=== PATIENT | female | born 1990 | race Caucasian/White ===

== ENCOUNTER 2017-08-26 15:41 | Day surgery (SDC) | payer OTHER ==
[2017-08-26] MEDS ORDERED: Morphine INJ* 2 MG/ML 1 ML CARPUJECT IV ONE (15:51)
[2017-08-26] MEDS ORDERED: Ondansetron INJ* 2 MG/ML VIAL IV ONE (15:51)
[2017-08-26] MEDS ORDERED: NS 0.9% 1000 ML* 1,000 ML IV ONE (15:51)
[2017-08-26 16:32] LABS: ABS Basophils 0 10^3/ul (0-0.2); ABS Eosinophils 0.1 10^3/ul (0-0.6); ABS Lymphocytes 2.8 10^3/ul (1.0-4.8); ABS Monocytes 0.5 10^3/ul (0-0.8); ABS Neutrophils 3.6 10^3/ul (1.5-7.7); ABS Nucleated RBC 0 10^3/ul; Eosinophil % 1.2 % (0-6); Hematocrit 40 % (35-47); Hemoglobin 13.8 g/dl (12.0-16.0); Mean Corpuscular HGB Conc 34 g/dl (31-36); Mean Corpuscular Hemoglobin 29 pg (27-31); Mean Corpuscular Volume 84 fL (80-97); Mean Platelet Volume 7 um3 (7.4-10.4); Nucleated Red Blood Cells % 0; Platelet Count 311 10^3/ul (150-450); Red Blood Count 4.78 10^6/ul (4.0-5.4); Red Cell Distribution Width 14 % (10.5-15)
[2017-08-26 16:43] LABS: EGFR Non-African American 131.6 (>60)
[2017-08-26 17:22] VITALS: BP 129/83
[2017-08-26 17:27] LABS: Urine Appearance Clear; Urine Blood Negative (Negative); Urine Color Yellow; Urine Ketones Trace (Negative); Urine Protein Negative (Negative); Urine Urobilinogen Negative (Negative)
[2017-08-26] MEDS ORDERED: Bupivacaine 0.25% SDV* 30 ML ONE (17:56)
[2017-08-26] MEDS ORDERED: ceFOXitin 2 GM IVPREMIX* 2 GM/50 ML BAG ONE (18:08)
[2017-08-26] MEDS ORDERED: Sodium Citrate/Citric Acid* 15 ML UDC ONE (18:19)
[2017-08-26] MEDS ORDERED: Sodium Citrate/Citric Acid* 15 ML UDC PO ONE (18:20)
[2017-08-26] MEDS ORDERED: HYDROcodone/ACETAMIN 5-325 MG* 1 TAB PO PRN (18:21)
[2017-08-26] MEDS ORDERED: DiMENhydriNATE IV* 50 MG/ML VIAL IV PUSH PRN (18:21)
[2017-08-26] MEDS ORDERED: oxyCODONE/Acetamin 5/325 MG* TAB PO PRN (18:21)
[2017-08-26] MEDS ORDERED: fentaNYL* 50 MCG/ML 2 ML VIAL (100 MCG VIAL) IV PRN (18:21)
[2017-08-26] MEDS ORDERED: Naloxone* 0.4 MG/ML 1 ML VIAL IV PRN (18:21)
--- NOTE | 2017-08-26 19:40 | BRIEFOPN ---
Brief Operative Note - Surgery Procedures: OPERATIVE REPORT PRE-OP: Acute appendicitis POST-OP: Same PROCEDURE: Laparoscopic appendectomy SURGEON: MD Millicent ANESTHESIA: General with Local Dr. Poe ASST: none IVF: min EBL: min SPECIMEN: Appendix DRAIN: none WOUND CLASS: 3 COMPLICATIONS: none TO PACU
--- NOTE | 2017-08-26 21:07 | HP ---
CC: [facility]; Dr. Rosalva Shaw at [facility] HISTORY AND PHYSICAL ADMISSION: DATE OF ADMISSION: 08/26/17 CHIEF COMPLAINT: Right lower quadrant abdominal pain. HISTORY OF PRESENT ILLNESS: Ms. Alona Dotson is a healthy 27-year-old woman who on Saturday evening developed some generalized abdominal bloating. This was not associated with nausea, vomiting or fever. She had no change in her bowel habits. Over the course of yesterday, she developed some generalized abdominal discomfort, it became more localized in the right lower quadrant, progressed in severity. The pain got so bad today that she presented to her primary care provider, Dr. Rosalva Shaw, and she was referred to the hospital for a CAT scan of the abdomen and pelvis. This showed a thickened dilated appendix consistent with early acute appendicitis and no other acute abnormality and she was referred to the emergency room. Laboratory workup included a normal white blood cell count of 7000. Her test was negative. She had an elevated C-reactive protein of 65 and a slight elevation in her liver transaminases of 50 and 86, but otherwise the studies were unremarkable. test was negative. Urinalysis was also unremarkable. After the results of the CT scan were noted, surgical consultation was obtained. PAST MEDICAL HISTORY: Unremarkable. PAST SURGICAL HISTORY: [place] tooth removal. MEDICATIONS: None. ALLERGIES: She has no known drug allergies. SOCIAL HISTORY: Socially, she is engaged. 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 She does not use tobacco, drinks alcohol on a social basis. REVIEW OF SYSTEMS: Cerebrovascular: No dizziness or visual disturbances. Cardiovascular: No chest pain, shortness of breath. Pulmonary: No wheezing or hemoptysis. GI: As per above. : Menstrual periods are regular. Has had no vaginal bleeding. PHYSICAL EXAMINATION GENERAL: A well-developed slightly overweight female with normal attention to grooming. VITAL SIGNS: Temperature 98.7, pulse 82, blood pressure 133/85. LUNGS: Clear to auscultation with normal respiratory effort. HEART: Regular rate and rhythm without murmurs, rubs or gallops. ABDOMEN: Soft, slightly distended. She has diminished bowel sounds throughout. There are no prior surgical excisions or hernia. She has tenderness in the right lower quadrant with some voluntary guarding, but no rigidity. I appreciate no masses. PSYCHIATRIC: She is awake, alert, and oriented x3. She has normal judgment and insight. DIAGNOSTIC STUDIES: I did review the images of the CT scan, as well as the official radiology report. IMPRESSION: Acute appendicitis both by clinical history, physical exam as well as the CT scan results. She does have a normal white blood cell count, but has an elevated C-reactive protein. CAT scan was otherwise unremarkable. PLAN: I recommend laparoscopic appendectomy today. We discussed the procedure with her and her fiance here in the holding area. The risks of, but not limited to, of bleeding, infection, intraabdominal abscess formation, injury to peritoneal and retroperitoneal structures, possibility of an open procedure, abdominal abscess, the risks of general anesthesia, deep vein thrombosis and blood clots in the lungs were all explained. We also briefly discussed hospital stays and recovery times as well. After our thorough discussion, she agrees and gives consent to proceed with a laparoscopic appendectomy. [id number]/CPS #: [id number] MTDD
--- NOTE | 2017-08-27 15:46 | OP ---
CC: Dr. Rosalva Shaw, [facility] * DATE OF OPERATION: 08/26/17 - [facility] DATE OF : 88 SURGEON: Caleb Ricks MD. MANDARIN CHINESE TEACHER: None. ANESTHESIOLOGIST: Dr. Poe. ANESTHESIA: General with local. PRE-OP DIAGNOSIS: Acute appendicitis. POST-OP DIAGNOSIS: Acute appendicitis. OPERATIVE PROCEDURE: Laparoscopic appendectomy. ESTIMATED BLOOD LOSS: Minimal. IV FLUIDS: 1 L crystalloid. SPECIMENS: Appendix. DRAINS: None. WOUND CLASSIFICATION: 3. FINDINGS: The appendix was thick walled, indurated and hyperemic. There was no evidence of gangrene or fibrinous exudate. The terminal ileum, cecum and right ovary and uterus appeared to be unremarkable. There are no other acute findings noted on laparoscopy. BRIEF HISTORY: Ms. Alona Dotson is a 27-year-old woman who presented to the emergency room with 36 hours of right lower quadrant abdominal pain and a CT scan that showed findings consistent with early acute appendicitis. She is now to be taken to the operating room for a appendectomy. DESCRIPTION OF PROCEDURE: Written informed consent was obtained, the abdomen was marked with indelible ink, and preoperative antibiotics were administered. The patient was taken to the operating room, placed in a supine position. Sequential compression devices and a warming blanket were applied. General anesthesia was administered. The abdomen was prepped and draped in the usual sterile fashion. Time-out verification was completed. Initially, 0.25% Marcaine mixed with 1% lidocaine was infiltrated in the umbilicus and a vertical incision was made just below the umbilical fold at the midline. The peritoneal cavity was entered under direct vision. A 12-mm blunt port was inserted and the abdomen was insufflated to 15 mmHg. Under direct vision, a 5-mm port was placed in the left lower abdominal wall and a second 5-mm port was placed in the suprapubic position. Upon evaluating the abdomen, there was no evidence of purulence or generalized peritonitis. The patient was placed in Trendelenburg position. The omentum was brought up from the pelvis up into her abdomen to expose the underlying intestine. The terminal ileum, cecum appeared to be unremarkable. The appendix was easily identified. It was intraperitoneal. The entire appendix was thickened, firm, rigid, distended, and hyperinjected without evidence of gangrene or fibrinous exudate, however. Findings were consistent with early acute appendicitis. The right ovary was easily visualized as well as uterus and these structures were unremarkable. There were no other abnormalities noted. The mesoappendix was then divided sequentially with the LigaSure device down to the base of the appendix. The cecum was unremarkable and this was then divided and amputated with an Endo TIM gonzales load of 45-mm stapler. The appendix was placed in an Endo Catch bag and brought up through the umbilical incision. The staple line was intact without bleeding. The mesentery without bleeding. The area was irrigated. Hemostasis was assured. All ports removed under direct vision of the camera and there was no abdominal wall bleeding. The umbilical fascia was closed with interrupted 0 Polysorb suture. The skin at all three incisions was approximated with a subcuticular 4-0 Polysorb suture. Steri-Strips and sterile dressings were applied. The patient tolerated the procedure well and was taken to the recovery room in stable condition. [id number]/CPS #: [id number] OSWALD
--- NOTE | 2017-08-28 08:40 | ED ---
Claudio Stoddard Angela, scribed for Denzel Mooney MD on 08/26/17 at 1554 . Abdominal Pain/Female - HPI Summary HPI Summary: This pt is a 27 y/o female presenting to [facility] brought by CT imaging for a diagnosis of acute appendicitis. Pt reports she began to feel bloated 2 days ago. Yesterday, she states she had worsening abdominal pain, which she rated 10/ 10 in severity. Currently pt rates her pain 4/10 in severity. She additionally notes nausea, vomiting, and fever. She denies any PMHx. - History of Current Complaint Chief Complaint: EDAbdPain Stated Complaint: POSSIBLE APPENDICITIS Hx Obtained From: Patient Onset/Duration: Lasting Days, Still Present Timing: Days Severity Currently: Moderate Pain Intensity: 4 Pain Scale Used: 0-10 Numeric Location: Discrete At: RLQ Radiates: No Aggravating Factor(s): Nothing Alleviating Factor(s): Nothing Associated Signs and Symptoms: Positive: Fever, Nausea, Vomiting Allergies/Adverse Reactions: Allergies Allergy/AdvReac Type Severity Reaction Status Date / Time No Known Allergies Allergy Verified 08/26/17 15:46 Home Medications: Home Medications NK [No Home Medications Reported] 08/26/17 [History Confirmed 08/26/17] PMH/Surg Hx/FS Hx/Imm Hx Endocrine/Hematology History: Denies: Hx Diabetes Cardiovascular History: Denies: Hx Hypertension Infectious Disease History: No Infectious Disease History: Denies: Traveled Outside the [place] in Last 30 Days - Family History Known Family History: Positive: Hypertension - Social History Alcohol Use: None Substance Use Type: Reports: None Smoking Status (MU): Never Smoked Tobacco Review of Systems Positive: Fever Positive: Abdominal Pain, Vomiting, Nausea All Other Systems Reviewed And Are Negative: Yes Physical Exam - Summary Physical Exam Summary: VITAL SIGNS: Reviewed. GENERAL: Patient is a well-developed and nourished female who is lying comfortable in the stretcher. Patient is not in any acute respiratory distress. HEAD AND FACE: Normocephalic and atraumatic. EYES: PERRLA, EOMI x 2, No injected conjunctiva. EARS: Hearing grossly intact. Ear canals and tympanic membranes are WNL. MOUTH: Oropharynx within normal limits. NECK: Supple, trachea is midline, no adenopathy, no JVD. CHEST: Symmetric, no tenderness at palpation LUNGS: Clear to auscultation bilaterally. No wheezing or crackles. CVS: RRR, S1 and S2 present, no murmurs or gallops appreciated. ABDOMEN: Soft. Right lower quadrant tenderness. No signs of distention. Positive bowel sounds. No rebound no guarding, and no masses palpated. No abdominal bruit or pulsations. EXTREMITIES: FROM in all major joints, no edema, no cyanosis or clubbing. NEURO: Alert and oriented x 3. No acute neurological deficits. Speech is normal. SKIN: Dry and warm Triage Information Reviewed: Yes Vital Signs On Initial Exam: Initial Vitals Temp Pulse Resp BP Pulse Ox 98.7 F 82 16 133/85 97 08/26/17 15:43 08/26/17 15:43 08/26/17 15:43 08/26/17 15:43 08/26/17 15:43 Vital Signs Reviewed: Yes Diagnostics - Vital Signs Vital Signs Temp Pulse Resp BP Pulse Ox 08/26/17 15:43 98.7 F 82 16 133/85 97 - Laboratory Result Diagrams: 08/26/17 16:05 08/26/17 16:05 Lab Statement: Any lab studies that have been ordered have been reviewed, and results considered in the medical decision making process. - CT Abdomen/Pelvis CT CT Interpretation: Positive (See Comments) - IMPRESSION: 1. Dilated appendix suggestive of early acute appendicitis without loculated fluid collection to suggest abscess. 2. Fatty infiltration of liver. Dr. Mooney has reviewed this radiology report. CT Interpretation Completed By: Radiologist Abdominal Pain Fem Course/Dx - Course Course Of Treatment: This pt is a 27 y/o female presenting to [facility] brought by CT imaging for a diagnosis of acute appendicitis. Pt reports she began to feel bloated 2 days ago. Yesterday, she states she had worsening abdominal pain, which she rated 10/10 in severity. Currently pt rates her pain 4/10 in severity. She additionally notes nausea, vomiting, and fever. She denies any PMHx. Test results without any significant abnormalities. Urinalysis is negative. Abdomen/pelvis CT: 1. Dilated appendix suggestive of early acute appendicitis without loculated fluid collection to suggest abscess. 2. Fatty infiltration of liver. Therefore I discussed the case with the physician planning assistant, from Dr. Dominique daniels. After their assessment they accepted the pt for admission for an acute appendicitis. Pt is hemodynamically stable, alert and oriented x3. - Diagnoses Provider Diagnoses: Acute appendicitis - Provider Notifications Discussed Care Of Patient With: PA from Dr. Lester's services Time Discussed With Above Provider: 17:16 Instructed by Provider To: Other - I discussed pt care with PA from Dr. Lester' s services who has agreed to admit the pt. Discharge - Discharge Plan Condition: Stable Disposition: ADMITTED TO [facility] Discharge Disposition Comment: to surgery Referrals: Rosalva Shaw MD [Primary Care Provider] - The documentation as recorded by the Claudio retana Angela accurately reflects the service I personally performed and the decisions made by Vinicio leger Walter, MD.
--- NOTE | 2017-09-04 09:55 | OP ---
CC: Dr. Shaw's office, [facility] * DATE OF OPERATION: 08/26/17 - [facility] DATE OF : 88 SURGEON: Caleb Ricks MD. MEAT SOAKER: None. ANESTHESIOLOGIST: Dr. Poe. ANESTHESIA: General with local. PRE-OP DIAGNOSIS: Acute appendicitis. POST-OP DIAGNOSIS: Acute appendicitis. OPERATIVE PROCEDURE: Laparoscopic appendectomy. ESTIMATED BLOOD LOSS: Minimal. IV FLUIDS: 1 L crystalloid. SPECIMENS: Appendix. DRAINS: None. WOUND CLASSIFICATION: 3. FINDINGS: The appendix was thick walled, indurated and hyperinjected. There was no evidence of gangrene or fibrinous exudate. The terminal ileum, cecum and right ovary and uterus appeared to be unremarkable. There were no other acute findings noted on laparoscopy. BRIEF HISTORY: Ms. Alona Dotson is a 27-year-old woman who presented to the emergency room with 36 hours of right lower quadrant abdominal pain and a CT scan that showed findings consistent with early acute appendicitis. She is now to be taken to the operating room for a appendectomy. DESCRIPTION OF PROCEDURE: Written informed consent was obtained, the abdomen was marked with indelible ink, and preoperative antibiotics were administered. The patient was taken to the operating room, placed in a supine position. Sequential compression devices and a warming blanket were applied. General anesthesia was administered. The abdomen was prepped and draped in the usual sterile fashion. Time-out verification was completed. Initially, 0.25% Marcaine mixed with 1% lidocaine was infiltrated in the umbilicus and a vertical incision was made just below the umbilical fold at the midline. The peritoneal cavity was entered under direct vision. A 12-mm blunt port was inserted and the abdomen was insufflated to 15 mmHg. Under direct vision, a 5-mm port was placed in the left lower abdominal wall and a second 5-mm port was placed in the suprapubic position. Upon evaluating the abdomen, there was no evidence of purulence or generalized peritonitis. The patient was placed in Trendelenburg position. The omentum was brought up from the pelvis up into her abdomen to expose the underlying intestine. The terminal ileum, cecum appeared to be unremarkable. The appendix was easily identified. It was intraperitoneal. The entire appendix was thickened, firm, distended, and hyperinjected without evidence of gangrene or fibrinous exudate, however. Findings were consistent with early acute appendicitis. The right ovary was usually visualized as well as uterus and this was unremarkable. There were no other abnormalities noted. The mesoappendix was then divided sequentially with the LigaSure device down to the base of the appendix. The cecum was unremarkable and this was then divided and amputated with an Endo TIM gonzales load of 45-mm stapler. The appendix was placed in an Endo Catch bag and brought up through the umbilical incision. The staple line was intact without bleeding. The mesentery without bleeding. The area was irrigated. Hemostasis was assured. All ports removed under direct vision of the camera and there was no abdominal wall bleeding. The umbilical fascia was closed with interrupted 0 Polysorb suture. The skin at all three incisions was approximated with a subcuticular 4-0 Polysorb suture. Steri-Strips and sterile dressings were applied. The patient tolerated the procedure well and was taken to the recovery room in stable condition. [id number] #: [id number] OSWALD
== END 2017-08-26 21:00 | disposition home or self-care (01) ==
LOC: ED 15:41 → OR 17:22
PROVIDERS: ATTEND Surgery
DX: K35.80 Unspecified acute appendicitis (principal); R10.31 Right lower quadrant pain; R11.2 Nausea with vomiting, unspecified; K76.0 Fatty (change of) liver, not elsewhere classified; R50.9 Fever, unspecified; R14.0 Abdominal distension (gaseous)
CPT/HCPCS: 36415; 80053; 81003; 83605; 83690; 84702; 85025; 86140; 87040; 88304; 96361; 96374; 96375; 99283; A9270-GY; C1776; J0694; J2270; J2405

== ENCOUNTER 2018-01-29 20:34 | Emergency (ER) | payer OTHER ==
--- OUTSIDE RECORDS SUMMARY | 2018-01-29 20:40 | XMS REPORT ---
:1990 External Reference #:[id number] Author Organization [facility] Address [address] [place] [address] Phone [phone] Care Team Providers Name Role Phone Rosalva Shaw M.D. 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 018 hours as needed Omeprazole Hx Capsules 40mg 30caps 1 by mouth R19.7 Rosalva Quinn - DR every day , M.D. 018 Control 00/00/0 Hx 1 po qd Unknown Pill 000 - 018 Vital Signs Date Vital Result Comment 01/03/2018 BP Systolic 124 mmHg BP Diastolic 78 mmHg Heart Rate 80 /min Body Temperature 98.5 F Respiratory Rate 15 /min Height 64 inches 5'4" Weight 166.00 lb BMI (Body Mass Index) 28.5 kg/m2 08/26/2017 BP Systolic 128 mmHg BP Diastolic 82 mmHg Heart Rate 92 /min Body Temperature 98.2 F Respiratory Rate 16 /min Height 64 inches 5'4" Weight 170.00 lb BMI (Body Mass Index) 29.2 kg/m2 04/24/2017 BP Systolic 126 mmHg BP Diastolic 82 mmHg Heart Rate 80 /min Body Temperature 99.1 F Respiratory Rate 16 /min Height 64 inches 5'4" Weight 157.00 lb BMI (Body Mass Index) 26.9 kg/m2 Results Test Date Test Result H/L Range Note Urine (a) 01/03/2018 SP Grav 1.020 Urine, (Fma/CMC/CTX) neg Ua - Micro (a) 01/03/2018 Appearance clear Color yellow Glucose, Urine (Fma/CMC/CTX) neg Bilirubin neg Ketones neg SP Grav 1.020 Blood neg PH 6.5 Protein neg Urobil 0.2 Nitrite neg Leukocytes (a/CMC/[facility]rex) neg Hyaline - /Lpf Granular - /Lpf WBC ([facility]) - RBC - Mucus - /Lpf Epith - /Lpf Bacteria - /Hpf Amorphous - /Lpf Crystals, Fluid (Fma/CMC/CTX) - Z#Comments - Urinalysis Profile 08/26/2017 Urine Color Yellow Urine Appearance Clear Urine Specific [place] 1.010 1.010-1.030 Urine pH 6.0 5-9 Urine Urobilinogen Negative Negative Urine Ketones Trace Negative Urine Protein Negative Negative Urine Leukocytes Negative Negative Urine Blood Negative Negative Urine Nitrite Negative Negative Urine Bilirubin Negative Negative Urine Glucose Negative Negative Laboratory test finding 08/26/2017 Blood Culture SEE RESULT BELOW 1 CBC Electronic (a) 08/26/2017 WBC 7.5 3.6-9.6 RBC 4.91 3.90-5.70 Hemoglobin (Fma/CMC/CTX) 13.9 g/dL 12.1 - 17.2 Hematocrit (Fma/CMC/CTX) 42.2 % 36.1 - 50.3 Platelets 332 10^3/ul 150-400 Lymph% 38.8 % 17.0-48.0 Mixed% 5.2 Neutrophils % 56.0 Mean Corpuscular Vol 86 82.2-97.4 Mean Corpuscular Hemoglobin 28.4 27.6-33.3 Mean Corpuscular Hemo Concen 33.0 32.0-36.0 RDW 14.2 High 11.6-13.7 Mean Platelet Volume 6.3 5.5-11.0 Ua - Non Micro (a) 08/26/2017 Appearance yellow Color clear Glucose, Urine (Fma/CMC/CTX) neg Bilirubin neg Ketones neg SP Grav 1.020 Blood neg PH 7.0 Protein neg Urobil 2.0 Nitrite neg Leukocytes ([facility]) neg Urine (Fma) 08/26/2017 SP Grav 1.020 Urine, (a/CMC/CTX) negative Hepatitis B Virus (Profile ) 05/22/2017 HBsAg Screen Negative Negative 2 Hep Be Ag Negative Negative 2 Hep B Core Ab, IgM Negative Negative 2 Hep B Core Ab, Tot Negative Negative 2 Hep Be Ab Negative Negative 2 Hep B Surface Ab, Qual Reactive 2, 3 Laboratory test finding 05/22/2017 HCV AB non-reactive non-reactive Comprehensive Metabolic Prof 05/22/2017 Sodium 142 mEq/L 134-149 Potassium 4.4 mEq/L 3.6-5.5 Chloride 103 mEq/L 94-112 Carbon Dioxide 21 mEq/L 21-32 Glucose 103 mg/dL 70-105 BUN 7 mg/dL 6-26 Creatinine 0.6 mg/dL 0.6-1.4 BUN/Creat Ratio 11.7 CALC 8.0-36.0 Calcium 8.6 mg/dL 8.6-10.2 Total Protein 6.8 g/dL 6.4-8.3 Albumin 4.3 g/dL 3.8-5.5 Globulin 2.5 g/dL 2.0-4.8 A/G Ratio 1.7 CALC 0.6-2.3 Alk. Phosphatase 36 U/L 30-110 Alt (SGPT) 23 U/L 7-35 Ast (Sgot) 23 U/L 5-34 Total Bilirubin 0.3 mg/dL 0.2-1.3 GFR Non- >60 ml/min/1.73m^ >=60 GFR >60 ml/min/1.73m^ >=60 Lipid Profile 05/22/2017 Cholesterol 195 mg/dL 120-200 Triglycerides 137 mg/dL 30-200 HDL Cholesterol 63 mg/dL 30-85 LDL (Calculated) 105 CALC 0-129 VLDL Cholesterol 27 mg/dL 0-50 HDL Risk Factor 3.1 CALC 0.0-4.4 Celiac Disease AB Screen 04/24/2017 Immunoglobulin A, Qn, Serum 160 mg/dL 87-352 2 Deamidated Gliadin Abs, IgA 3 units 0-19 2, 4 t-Transglutaminase (tTG) IgA <2 U/mL 0-3 2, 5 Comprehensive Metabolic Prof 04/24/2017 Sodium 135 mEq/L 134-149 Potassium 4.3 mEq/L 3.6-5.5 Chloride 98 mEq/L 94-112 Carbon Dioxide 26 mEq/L 21-32 Glucose 119 mg/dL High 70-105 BUN 16 mg/dL 6-26 Creatinine 1.0 mg/dL 0.6-1.4 BUN/Creat Ratio 16.0 CALC 8.0-36.0 Calcium 9.3 mg/dL 8.6-10.2 Total Protein 6.8 g/dL 6.4-8.3 Albumin 4.7 g/dL 3.8-5.5 Globulin 2.1 g/dL 2.0-4.8 A/G Ratio 2.2 CALC 0.6-2.3 Alk. Phosphatase 41 U/L 30-110 Alt (SGPT) 65 U/L High 7-35 Ast (Sgot) 38 U/L High 5-34 Total Bilirubin 0.8 mg/dL 0.2-1.3 GFR Non- >60 ml/min/1.73m^ >=60 GFR >60 ml/min/1.73m^ >=60 Complete Blood Count 04/24/2017 WBC 5.1 x10^3/UL 3.6-9.6 RBC 4.65 x10^6/UL 3.90-5.70 HGB 13.1 g/dL 12.1-17.2 HCT 39 % 36-50 MCV 85.0 fL 82.2-97.4 MCH 28.1 pg 27.6-33.3 MCHC 33.1 g/dL 33.0-35.5 RDW 13.8 % High 11.6-13.7 PLT 339 x10^3/UL 150-400 MPV 6.5 fL Low 7.4-10.4 Gran # 2.6 x10^3/UL 1.5-7.2 Lymph# 2.1 x10^3/UL 0.7-4.9 Person# 0.4 x10^3/UL 0.1-0.9 Gran % 49.6 % 42.2-75.2 Lymph % 41.4 % 20.5-51.1 Person% 9.0 % 1.7-9.3 Laboratory test finding 04/24/2017 Free T4 1.21 ng/dL 0.75-1.54 TSH 1.58 mIU/L 0.50-6.00 1 SEE RESULT BELOW Name: ALONA DOTSON : [address]: Caleb Ricks MD Acct: [id number] Unit: [id number] AGE: 27 Location: OR Re08/26/17 SEX: F Status: RENÉE HELTON SPEC: [id number] MAYI: 08/26/17-[address] [facility] [address]: Denzel Mooney MD REQ: [id number] RECD: 08/26/17 STATUS: [facility] DR: Rosalva Shaw MD _ SOURCE: BLOOD,VENO SPDESC: ORDERED: Blood Cult Procedure Result Reported Site Aerobic Culture Bottle Final 08/31/17- 1624 ML No Growth Day 5 Anaerobic Culture Bottle Final 08/31/17- 1622 ML No Growth Day 5 * ML - MAIN LAB ([facility]) . END OF REPORT * ML=Testing performed at Main Lab DEPARTMENT OF PATHOLOGY, [address] [place] [address] Darien Dixon M.D. Director [facility] # [id number] 2 1 sst 3 Non Reactive: Inconsistent with immunity, less than 10 mIU/mL Reactive: Consistent with immunity, greater than 9.9 mIU/mL 4 Negative 0 - 19 Weak Positive 20 - 30 Moderate to Strong Positive >30 5 Negative 0 - 3 Weak Positive 4 - 10 Positive >10 Tissue Transglutaminase (tTG) has been identified as the endomysial antigen. Studies have demonstr- ated that endomysial IgA antibodies have over 99% specificity for gluten sensitive enteropathy. Procedures Description No Information Encounters Type Date Location Provider CPT E/M Dx Office Visit 08/26/2017 11:00a [facility] Office Shakir Bazan, 91900 R10.30 Office Visit 04/24/2017 4:00p [facility] Office Rosalva Shaw M.D. 62383 R19.7 R14.0 Plan of Care 01/03/2018 - Shakir Bazan, MDR10.30 Lower abdominal pain, unspecifiedAllComments:~B_~U_Medication Management~b_~u_ Patient Understands medications she's taking? Yes No Are there Barriers to Adherence? Yes No Has the patient been asked about herbal supplements and therapies, and OTC meds? Yes No
[2018-01-29] MEDS ORDERED: Dexamethasone IV* 4 MG/ML 1 ML (4 MG) IV SLOW PU ONE (21:04)
[2018-01-29] MEDS ORDERED: diPHENhydraMINE IV* 50 MG/ML 1 ml VIAL (BENADRYL) IV ONE (21:06)
[2018-01-29] MEDS ORDERED: Ketorolac INJ* 30 MG/ML 1 ML VIAL IV PUSH ONE (21:06)
[2018-01-29] MEDS ORDERED: cefTRIAXone(*) 1 GM in NS 0.9% 50 ML* 50 ML IVPB ONE (21:06)
--- NOTE | 2018-01-29 21:20 | UC ---
Throat Pain/Nasal Heraclio HPI - HPI Summary HPI Summary: Patient is an otherwise healthy 28-year-old female presenting to the with complaint of sore throat, bilateral neck pain, difficulty opening jaw and feeling of swelling into the bilateral lymph nodes and posterior pharynx. She has never had anything like this before. Denies history of strep throat. Unknown immunizations [place] the [place] she was 10 years old. Denies any fevers, but admits to sweats and chills. Denies any difficulty swallowing, however endorses odynophagia. Denies any difficulty breathing, chest pain or shortness of breath. - History of Current Complaint Chief Complaint: UCGeneralIllness Stated Complaint: THROAT PAIN Time Seen by Provider: 01/29/18 20:46 Hx Obtained From: Patient Hx Last Menstrual Period: 01/07/18 ?: No Onset/Duration: Sudden Onset Severity: Moderate Pain Intensity: 9 Pain Scale Used: 0-10 Numeric Associated Signs & Symptoms: Positive: Other - odynophagia - Epiglottits Risk Factors Epiglottis Risk Factors: Negative - Allergies/Home Medications Allergies/Adverse Reactions: Allergies Allergy/AdvReac Type Severity Reaction Status Date / Time No Known Allergies Allergy Verified 01/29/18 20:48 PMH/Surg Hx/FS Hx/Imm Hx Previously Healthy: Yes - Surgical History Surgical History: Yes Surgery Procedure, Year, and Place: appendectomy - Social History Occupation: Employed Full-time Lives: With Family Alcohol Use: Weekly Substance Use Type: None Smoking Status (MU): Never Smoked Tobacco Review of Systems Constitutional: Negative Skin: Negative ENT: Sore Throat, Other - neck pain Respiratory: Negative Cardiovascular: Negative Motor: Negative Neurovascular: Negative Psychological: Negative Is Patient Immunocompromised?: No All Other Systems Reviewed And Are Negative: Yes Physical Exam Triage Information Reviewed: Yes Appearance: Well-Nourished, Obese Vital Signs: Initial Vital Signs Temp 99.2 F 01/29/18 20:41 Pulse 108 01/29/18 20:41 Resp 22 01/29/18 20:41 BP 147/108 01/29/18 20:41 Pulse Ox 98 01/29/18 20:41 Vital Signs Reviewed: Yes Eye Exam: Normal Eyes: Positive: Conjunctiva Clear ENT: Positive: Uvula midline. Negative: Pharynx normal, Pharyngeal erythema, Nasal congestion, Nasal drainage, Tonsillar swelling, Tonsillar exudate Neck exam: Normal Respiratory Exam: Normal Respiratory: Positive: Chest non-tender, Lungs clear Musculoskeletal Exam: Normal Musculoskeletal: Positive: Strength Intact Neurological Exam: Normal Psychological: Positive: Normal Response To Family Skin Exam: Normal Throat Pain/Nasal Course/Dx - Course Course Of Treatment: During course treatment, the patient is evaluated for difficulty swallowing, bilateral neck pain, enlarged lymph nodes, feeling of trismus and odynophagia. She states 4 days ago started with a sore throat continued with a cough. Denies any shortness of breath or difficulty swallowing. She states she is able to swallow food and drink okay and last meal was 2 hours ago. Allergies include cats, she states she has a cat that this has never affected her such as this. She denies any hives or rash or other skin condition. She has taken ibuprofen intermittently without much relief. CT neck obtained. Benadryl 50mg IV, Rocephin 1g IV, Decadron 10mg IV given. good effect. Patient improves. Also Dr. Mistry to see patient and agrees with course of treatment. She will be given redness own, Robitussin with codeine and is encouraged Benadryl. She is given strict return precautions. - Differential Dx/Diagnosis Provider Diagnoses: Throat tightening Discharge - Sign-Out/Discharge Documenting (check all that apply): Patient Departure - Discharge Plan Condition: Stable Disposition: HOME Prescriptions: Clindamycin Cap(NF) [Clindamycin Cap 300 mg Cap(NF)] 300 mg PO Q6H #20 cap guaiFENesin/CODIEN 100MG-10MG* [Robitussin AC 100Mg-10Mg*] 10 ml PO BEDTIME # 120 udc MDD 40 predniSONE TAB* [Deltasone 20 MG TAB*] 20 mg PO DAILY #12 tab Referrals: Rosalva Shaw MD [Primary Care Provider] - Additional Instructions: Clindamycin four times daily x 5 days Benadryl 25mg up to three times daily - do not drive while taking this medication Prednisone 60mg on day 1 and 2; 40mg on day 3 and 4; 20mg on day 5 and 6 Robitussin with codeine up to every 6 hours as needed for cough Take prednisone in the AM as this is a stimulant and may keep you up at night. - Billing Disposition and Condition Condition: STABLE Disposition: Home
[2018-01-29] MEDS ORDERED: cefTRIAXone VIAL(*) 1,000 MG VIAL ONE (21:31)
[2018-01-29] MEDS ORDERED: diPHENhydraMINE LIQ* 12.5 MG/5 ML UDC PO ONE (22:05)
[2018-01-29] MEDS ORDERED: guaiFENesin/CODIEN 100MG-10MG* 5 ML UDC PO ONE (22:14)
[2018-01-29 22:16] VITALS: BP 140/97
--- NOTE | 2018-01-30 08:03 | RAD ---
HISTORY: neck tightness COMPARISONS: None TECHNIQUE: Multiple contiguous axial CT scans were obtained of the neck without intravenous contrast, with coronal and sagittal multiplanar reformations. FINDINGS: The study is limited by the lack of intravenous contrast. This limits evaluation of the solid organs and vasculature. BRAIN AND ORBITS: The visualized brain and orbits are normal. PARANASAL SINUSES: The visualized paranasal sinuses are clear. SALIVARY GLANDS: The parotid glands, submandibular glands, sublingual glands are normal. NASAL CAVITY/NASOPHARYNX: The nasal cavity and nasopharynx are normal. ORAL CAVITY/OROPHARYNX: The oral cavity is obscured by streak artifact from dental amalgam. The visualized oral cavity and oropharynx are unremarkable. LARYNGEAL APPARATUS/HYPOPHARYNX: The laryngeal apparatus and hypopharynx are normal. UPPER AIRWAY/UPPER ESOPHAGUS: The visualized upper airway and esophagus are normal. LUNG APICES: The lung apices are clear. THYROID GLAND: The thyroid gland is normal. LYMPH NODES: There are innumerable scattered small, less than 1 cm short axis, lymph nodes noted along the anterior and posterior cervical chain. There is no lymphadenopathy by size criteria. VASCULATURE: The vasculature is unremarkable. BONES AND SOFT TISSUES: Mild degenerative changes are noted of the spine. OTHER: None. IMPRESSION: NO ACUTE NONCONTRAST CT PATHOLOGY OF THE NECK. R0
== END 2018-01-29 22:23 | disposition home or self-care (01) ==
LOC: UCEAST 20:34
DX: R09.89 Other specified symptoms and signs involving the circulatory and respiratory systems (principal); J02.9 Acute pharyngitis, unspecified; M54.2 Cervicalgia; R59.9 Enlarged lymph nodes, unspecified; E66.9 Obesity, unspecified; R05 Cough; R13.10 Dysphagia, unspecified
CPT/HCPCS: 70490; 96360; 96365; 96374; 96375; 99212; A9270-GY; G0463; J0696; J1100; J1200; J1885

== ENCOUNTER 2018-12-31 09:21 | Emergency (ER) | payer OTHER ==
[2018-12-31 09:52] VITALS: BP 113/73
--- NOTE | 2018-12-31 10:25 | UC ---
Skin Complaint HPI - HPI Summary HPI Summary: Pt presents with c/o of insect bites on upper extremities, back, and lower extremities that she states "that they always go bad and that nothing ever helps but steroids". She states she was bitten by mosquitos on 12/29/18 - History of Current Complaint Chief Complaint: UCSkin Time Seen by Provider: 12/31/18 10:17 Stated Complaint: SKIN ISSUE Hx Obtained From: Patient Hx Last Menstrual Period: 01/07/18 ?: No Onset/Duration: Sudden Onset, Still Present, Worse Since - onset Skin Exposure Onset/Duration: Days Ago Timing: Constant Onset Severity: Mild Current Severity: Moderate Pain Intensity: 8 Location: Diffuse Character: Swelling, Pruritus, Redness, Raised, Painful Aggravating Factor(s): Touch Alleviating Factor(s): Nothing Associated Signs & Symptoms: Positive: Rash Related History: Insect Bite/Sting - Allergy/Home Medications Allergies/Adverse Reactions: Allergies Allergy/AdvReac Type Severity Reaction Status Date / Time No Known Allergies Allergy Verified 12/31/18 09:51 Home Medications: Home Medications Ibuprofen 200 mg PO 12/31/18 [History] PMH/Surg Hx/FS Hx/Imm Hx Previously Healthy: Yes - Surgical History Surgical History: Yes Surgery Procedure, Year, and Place: appendectomy - Social History Occupation: Employed Full-time Lives: With Family Alcohol Use: Occasionally Substance Use Type: None Smoking Status (MU): Never Smoked Tobacco Have You Smoked in the Last Year: No Review of Systems All Other Systems Reviewed And Are Negative: Yes Constitutional: Positive: Negative Skin: Positive: Other - insect bites, erythema, swelling, firmness Eyes: Positive: Negative ENT: Positive: Negative Respiratory: Positive: Negative Cardiovascular: Positive: Negative Gastrointestinal: Positive: Negative Genitourinary: Positive: Negative Motor: Positive: Negative Neurovascular: Positive: Negative Musculoskeletal: Positive: Negative Neurological: Positive: Negative Psychological: Positive: Negative Is Patient Immunocompromised?: No Physical Exam Triage Information Reviewed: Yes Appearance: Well-Appearing Vital Signs: Initial Vital Signs Temp 98.2 F 12/31/18 09:47 Pulse 67 12/31/18 09:47 Resp 18 12/31/18 09:47 BP 113/73 12/31/18 09:47 Pulse Ox 100 12/31/18 09:47 Vital Signs Reviewed: Yes Eye Exam: Normal ENT Exam: Normal ENT: Positive: Hearing grossly normal Dental Exam: Normal Neck exam: Normal Respiratory Exam: Normal Cardiovascular Exam: Normal Musculoskeletal Exam: Normal Neurological Exam: Normal Psychological Exam: Normal Skin Exam: Other - large erythematous, firm, swelling right upper arm,warm to touch; mutliple insect bites to right upper back , Course/Dx - Differential Diagnoses - Skin Complaint Differential Diagnoses: Local Allergic Reaction, Urticaria - Diagnoses Provider Diagnosis: Insect bite, Allergic reaction to insect bite Discharge - Sign-Out/Discharge Documenting (check all that apply): Patient Departure All imaging exams completed and their final reports reviewed: No Studies - Discharge Plan Condition: Stable Disposition: HOME Prescriptions: predniSONE TAB* [Deltasone 20 MG TAB*] 20 mg PO DAILY #5 tab Patient Education Materials: Antihistamine (By mouth), Insect Bite or Sting (ED ) Referrals: Bridger Park MD [Medical Doctor] - If Needed Shakir Bazan MD [Primary Care Provider] - If Needed - Billing Disposition and Condition Condition: STABLE Disposition: Home
== END 2018-12-31 10:35 | disposition home or self-care (01) ==
LOC: UCEAST 09:21
DX: T63.481A Toxic effect of venom of other arthropod, accidental (unintentional), initial encounter (principal); Y92.9 Unspecified place or not applicable
CPT/HCPCS: 99212; G0463